=== PATIENT | female | born 1955 | race Two or more races ===

== ENCOUNTER 2021-01-08 14:17 | Outpatient (REF) | payer OTHER, SELFPAY ==
--- NOTE | ~2021-01-08 | XR_ITS ---
EXAMINATION: BILATERAL HAND AND WRIST X-RAYS CLINICAL INFORMATION: Rheumatoid arthritis COMPARISON: None TECHNIQUE: 4 views of each hand and wrist FINDINGS: There may be mild periarticular osteopenia. Bone alignment is normal. No fracture or dislocation is seen. There are small osteophytes at the IP joints of the right hand. Joint spaces are otherwise normal. No erosions or cysts are seen. Soft tissues are normal. XR/XR hand wrist RT IMPRESSION: Small osteophytes at the IP joints on the right. Question mild periarticular osteopenia.
--- NOTE | ~2021-01-08 | XR_ITS ---
EXAMINATION: biLATERAL FOOT X-RAY CLINICAL INFORMATION: Pain COMPARISON: None TECHNIQUE: 3 views of the each foot FINDINGS: Right: Bone alignment is normal. No fracture or dislocation is seen. There is severe arthritis at the first MTP joint with joint space narrowing and osteophyte formation. There are calcaneal spurs. There is soft tissue ossification or calcification of the Achilles tendon insertion. Left: There is mild hallux valgus deformity at the first MTP joint. There is mild arthritis with joint space narrowing and osteophyte formation. There are small calcaneal spurs. XR/XR foot LT min 3V IMPRESSION: Arthritis at the first MTP joint, right greater than left. Bilateral calcaneal spurs, right greater than left. Soft tissue thickening and calcification or ossification of the right Achilles tendon.
--- NOTE | ~2021-01-08 | XR_ITS ---
EXAMINATION: biLATERAL FOOT X-RAY CLINICAL INFORMATION: Pain COMPARISON: None TECHNIQUE: 3 views of the each foot FINDINGS: Right: Bone alignment is normal. No fracture or dislocation is seen. There is severe arthritis at the first MTP joint with joint space narrowing and osteophyte formation. There are calcaneal spurs. There is soft tissue ossification or calcification of the Achilles tendon insertion. Left: There is mild hallux valgus deformity at the first MTP joint. There is mild arthritis with joint space narrowing and osteophyte formation. There are small calcaneal spurs. XR/XR foot RT min 3V IMPRESSION: Arthritis at the first MTP joint, right greater than left. Bilateral calcaneal spurs, right greater than left. Soft tissue thickening and calcification or ossification of the right Achilles tendon.
--- NOTE | ~2021-01-08 | XR_ITS ---
EXAMINATION: BILATERAL HAND AND WRIST X-RAYS CLINICAL INFORMATION: Rheumatoid arthritis COMPARISON: None TECHNIQUE: 4 views of each hand and wrist FINDINGS: There may be mild periarticular osteopenia. Bone alignment is normal. No fracture or dislocation is seen. There are small osteophytes at the IP joints of the right hand. Joint spaces are otherwise normal. No erosions or cysts are seen. Soft tissues are normal. XR/XR hand wrist LT IMPRESSION: Small osteophytes at the IP joints on the right. Question mild periarticular osteopenia.
[2021-01-08 15:32] LABS: MANUAL DIFF FLAG NO
[2021-01-08 15:35] LABS: Basophils Percent Auto 0.9 % (0-2); Eosinophils Absolute Auto 0.2 X10*3/uL (0.0-0.4); Eosinophils Percent Auto 5.2 % (0-4); Hematocrit 39.8 % (37-47); Hemoglobin 13.4 g/dl (12.0-16.0); Imm Gran Abs Auto 0.01 X10*3/uL (0.00-0.03); Imm Gran Pct Auto 0.2 % (0.0-0.4); Lymphocytes Absolute Auto 1.2 X10*3/uL (1.2-4.9); Lymphocytes Percent Auto 26.7 % (20-40); Mean Corpuscular HGB Conc 33.7 g/dl (31.0-35.0); Mean Corpuscular Hemoglobin 30.1 pg (27.0-33.0); Mean Corpuscular Volume 89.4 fL (80-98); Mean Platelet Volume 10.6 fL (9.4-12.3); Monocytes Absolute Auto 0.5 X10*3/uL (0.1-1.2); Monocytes Percent Auto 10.6 % (2-11); Neutrophils Absolute Auto 2.6 X10*3/uL (2.0-8.3); Neutrophils Percent Auto 56.4 % (45-73); Platelet Count 232 X10*3/uL (160-400); Red Blood Count 4.45 X10*6/uL (4.20-5.50); Red Cell Distribution Width 12.5 % (11.0-16.0); White Blood Count 4.6 X10*3/uL (4.8-10.8)
[2021-01-08 16:20] LABS: Erythrocyte Sedimentation Rate 7 MM/HR (0-20)
[2021-01-08 16:32] LABS: Alanine Aminotransferase 28 U/L (0-31); Albumin Level 4.3 g/dL (3.5-5.0); Alkaline Phosphatase 76 U/L (39-117); Anion Gap 10 (12-20); Aspartate Amino Transferase 33 U/L (5-31); Bilirubin Total 0.4 mg/dL (0.0-1.0); Blood Urea Nitrogen 15 mg/dL (9-16); C Reactive Protein 0.39 mg/dL (< or = 0.50); Calcium 9.7 mg/dL (8.4-10.2); Carbon Dioxide 29 mmol/L (22-29); Chloride 107 mmol/L (96-108); Estimated Glomerular Filt Rate > 60; Glucose Random 81 mg/dL (60-115); Potassium 4.3 mmol/L (3.3-5.1); Rheumatoid Factor < 15.0 IU/mL (<15.0); Sodium 142 mmol/L (135-145); Total Protein 6.7 g/dL (6.5-8.0)
[2021-01-10 08:39] LABS: HBS Num1 0.61 mIU/mL (0-7.99); Hepatitis A Antibody IgM 0.23 Index (0-0.79); ~Hepatitis A Antibody IgM Nonreactive (Nonreactive); ~Hepatitis B Surface Antibody NONREACTIVE (Nonreactive)
[2021-01-10 09:03] LABS: HBc Num1 0.08 S/CO (0.00-0.79); HBsAGNum1 0.17 S/CO (0.00-0.99); Hepatitis B Core Antibody Nonreactive (Nonreactive); Hepatitis B Surface Antigen Negative (Negative); ~HepC Num1 0.08 S/CO (0.00-0.79); ~Hepatitis C Antibody Nonreactive (Nonreactive)
[2021-01-10 14:17] LABS: Cyclic Citrullinated Peptide <16 UNITS
[2021-01-11 14:31] LABS: TS Negative Control Passed; TS Panel A 1; TS Panel B 1; TS Positive Control Passed; TSpotTB Negative (SeeBelow)
== END 2021-01-08 14:18 | disposition home or self-care (01) ==
LOC: HO.XRAY 14:17
PROVIDERS: PCP Internal Medicine; Visit Provider Student in an Organized Health Care Education/Training Program
DX: M06.9 Rheumatoid arthritis, unspecified (principal); Z79.899 Other long term (current) drug therapy
CPT/HCPCS: 36415; 73110; 73130; 73630; 80053; 85025; 85652; 86140; 86200; 86431; 86481; 86704; 86706; 86709; 86803; 87340; 99202

== ENCOUNTER → 2021-05-09 12:59 | Outpatient (BNVA) | payer OTHER, SELFPAY | PROVIDERS: PCP Internal Medicine; Visit Provider Nurse Practitioner Family | DX: M06.9 Rheumatoid arthritis, unspecified (principal); M25.50 Pain in unspecified joint | CPT/HCPCS: 99212 ==

== ENCOUNTER 2021-05-30 12:37 | Outpatient (REF) | payer OTHER, SELFPAY ==
[2021-05-30 12:51] LABS: MANUAL DIFF FLAG NO
[2021-05-30 13:01] LABS: Basophils Absolute Auto 0.1 X10*3/uL (0.0-0.2); Basophils Percent Auto 0.9 % (0-2); Eosinophils Absolute Auto 0.2 X10*3/uL (0.0-0.4); Eosinophils Percent Auto 4.1 % (0-4); Hematocrit 41.7 % (37-47); Imm Gran Abs Auto 0.01 X10*3/uL (0.00-0.03); Imm Gran Pct Auto 0.2 % (0.0-0.4); Lymphocytes Absolute Auto 1.5 X10*3/uL (1.2-4.9); Lymphocytes Percent Auto 26.7 % (20-40); Mean Corpuscular HGB Conc 33.6 g/dl (31.0-35.0); Mean Corpuscular Hemoglobin 30.1 pg (27.0-33.0); Mean Corpuscular Volume 89.7 fL (80-98); Mean Platelet Volume 10.5 fL (9.4-12.3); Monocytes Absolute Auto 0.7 X10*3/uL (0.1-1.2); Monocytes Percent Auto 12.6 % (2-11); Neutrophils Absolute Auto 3.1 X10*3/uL (2.0-8.3); Neutrophils Percent Auto 55.5 % (45-73); Platelet Count 232 X10*3/uL (160-400); Red Blood Count 4.65 X10*6/uL (4.20-5.50); Red Cell Distribution Width 12.4 % (11.0-16.0); White Blood Count 5.6 X10*3/uL (4.8-10.8)
[2021-05-30 13:23] LABS: Alanine Aminotransferase 31 U/L (0-31); Albumin Level 4.5 g/dL (3.5-5.0); Alkaline Phosphatase 67 U/L (39-117); Anion Gap 12 (12-20); Aspartate Amino Transferase 34 U/L (5-31); Bilirubin Total 0.6 mg/dL (0.0-1.0); Blood Urea Nitrogen 16 mg/dL (9-16); C Reactive Protein 0.37 mg/dL (< or = 0.50); Calcium 9.8 mg/dL (8.4-10.2); Carbon Dioxide 29 mmol/L (22-29); Chloride 104 mmol/L (96-108); Estimated Glomerular Filt Rate > 60; Glucose Random 102 mg/dL (60-115); Potassium 4.6 mmol/L (3.3-5.1); Sodium 140 mmol/L (135-145)
[2021-05-30 13:51] LABS: Erythrocyte Sedimentation Rate 7 MM/HR (0-20)
== END 2021-05-30 12:38 | disposition home or self-care (01) ==
LOC: HO.LAB 12:37
PROVIDERS: PCP Internal Medicine; Visit Provider Nurse Practitioner Family
DX: M06.9 Rheumatoid arthritis, unspecified (principal)
CPT/HCPCS: 36415; 80053; 85025; 85652; 86140

== ENCOUNTER 2021-08-21 | Outpatient (REF) | payer OTHER, SELFPAY ==
[2021-08-21 15:07] LABS: MANUAL DIFF FLAG NO
[2021-08-21 15:30] LABS: Basophils Absolute Auto 0.1 X10*3/uL (0.0-0.2); Basophils Percent Auto 1.1 % (0-2); Eosinophils Absolute Auto 0.3 X10*3/uL (0.0-0.4); Eosinophils Percent Auto 5.1 % (0-4); Hematocrit 41.8 % (37.0-47.0); Hemoglobin 13.5 g/dl (12.0-16.0); Imm Gran Abs Auto 0.01 X10*3/uL (0.00-0.03); Imm Gran Pct Auto 0.2 % (0.0-0.4); Lymphocytes Absolute Auto 1.4 X10*3/uL (1.2-4.9); Lymphocytes Percent Auto 26.4 % (20-40); Mean Corpuscular HGB Conc 32.3 g/dl (31.0-35.0); Mean Corpuscular Volume 89.7 fL (80.0-98.0); Mean Platelet Volume 10.6 fL (9.4-12.3); Monocytes Absolute Auto 0.5 X10*3/uL (0.1-1.2); Monocytes Percent Auto 9.9 % (2-11); Neutrophils Percent Auto 57.3 % (45-73); Platelet Count 232 X10*3/uL (160-400); Red Blood Count 4.66 X10*6/uL (4.20-5.50); Red Cell Distribution Width 12.3 % (11.0-16.0); White Blood Count 5.3 X10*3/uL (4.8-10.8)
[2021-08-21 15:54] LABS: Alanine Aminotransferase 30 U/L (0-31); Albumin Level 4.3 g/dL (3.5-5.0); Alkaline Phosphatase 58 U/L (39-117); Anion Gap 12 (12-20); Aspartate Amino Transferase 33 U/L (5-31); Bilirubin Total 0.6 mg/dL (0.0-1.0); Blood Urea Nitrogen 14 mg/dL (9-16); C Reactive Protein 0.17 mg/dL (< or = 0.50); Calcium 9.6 mg/dL (8.4-10.2); Carbon Dioxide 27 mmol/L (22-29); Chloride 106 mmol/L (96-108); Creatinine Clr Calc Pharmacy 91.5; Estimated Glomerular Filt Rate > 60; Glucose Random 86 mg/dL (60-115); Potassium 4.3 mmol/L (3.3-5.1); Sodium 141 mmol/L (135-145)
[2021-08-21 16:39] LABS: Erythrocyte Sedimentation Rate 6 MM/HR (0-20)
== END 2021-08-21 00:01 | disposition home or self-care (01) ==
LOC: HO.LAB
PROVIDERS: Visit Provider Nurse Practitioner Family
DX: M05.9 Rheumatoid arthritis with rheumatoid factor, unspecified (principal)
CPT/HCPCS: 36415; 80053; 85025; 85652; 86140

== ENCOUNTER → 2021-08-21 14:03 | Outpatient (BNVA) | payer OTHER, SELFPAY | PROVIDERS: PCP Internal Medicine; Visit Provider Nurse Practitioner Family | DX: M06.9 Rheumatoid arthritis, unspecified (principal); M85.80 Other specified disorders of bone density and structure, unspecified site; Z79.899 Other long term (current) drug therapy | CPT/HCPCS: 36415; 80053; 85025; 99212 ==

== ENCOUNTER 2021-11-26 13:05 | Outpatient (REF) | payer OTHER, SELFPAY ==
[2021-11-26 13:59] LABS: MANUAL DIFF FLAG NO
[2021-11-26 14:15] LABS: Basophils Absolute Auto 0.1 X10*3/uL (0.0-0.2); Eosinophils Absolute Auto 0.2 X10*3/uL (0.0-0.4); Eosinophils Percent Auto 3.8 % (0-4); Hematocrit 39.7 % (37.0-47.0); Hemoglobin 13.3 g/dl (12.0-16.0); Lymphocytes Absolute Auto 1.2 X10*3/uL (1.2-4.9); Lymphocytes Percent Auto 24.6 % (20-40); Mean Corpuscular HGB Conc 33.5 g/dl (31.0-35.0); Mean Corpuscular Hemoglobin 29.6 pg (27.0-33.0); Mean Corpuscular Volume 88.2 fL (80.0-98.0); Mean Platelet Volume 10.5 fL (9.4-12.3); Monocytes Absolute Auto 0.5 X10*3/uL (0.1-1.2); Monocytes Percent Auto 10.4 % (2-11); Neutrophils Percent Auto 60.2 % (45-73); Platelet Count 200 X10*3/uL (160-400); Red Cell Distribution Width 12.7 % (11.0-16.0)
[2021-11-26 14:38] LABS: Alanine Aminotransferase 28 U/L (0-31); Albumin Level 4.2 g/dL (3.5-5.0); Alkaline Phosphatase 58 U/L (39-117); Anion Gap 12 (12-20); Aspartate Amino Transferase 29 U/L (5-31); Bilirubin Total 0.4 mg/dL (0.0-1.0); Blood Urea Nitrogen 17 mg/dL (9-16); C Reactive Protein 0.17 mg/dL (< or = 0.50); Calcium 9.9 mg/dL (8.4-10.2); Carbon Dioxide 30 mmol/L (22-29); Chloride 106 mmol/L (96-108); Estimated Glomerular Filt Rate > 60; Glucose Random 74 mg/dL (60-115); Potassium 4.5 mmol/L (3.3-5.1); Sodium 143 mmol/L (135-145); Total Protein 6.6 g/dL (6.5-8.0)
[2021-11-26 16:40] LABS: Erythrocyte Sedimentation Rate 7 MM/HR (0-20)
== END 2021-11-26 13:06 | disposition home or self-care (01) ==
LOC: HO.LAB 13:05
PROVIDERS: PCP Internal Medicine; Visit Provider Nurse Practitioner Family
DX: M06.9 Rheumatoid arthritis, unspecified (principal); M54.50 Low back pain, unspecified; Z79.899 Other long term (current) drug therapy
CPT/HCPCS: 36415; 80053; 85025; 85652; 86140; 99212

== ENCOUNTER → 2022-02-26 13:24 | Outpatient (BNVA) | payer OTHER, SELFPAY | PROVIDERS: PCP Internal Medicine; Visit Provider Nurse Practitioner Family | DX: M06.9 Rheumatoid arthritis, unspecified (principal); Z79.899 Other long term (current) drug therapy | CPT/HCPCS: Q3014 ==

== ENCOUNTER → 2022-05-27 11:58 | Outpatient (BNVA) | payer OTHER, SELFPAY | PROVIDERS: PCP Internal Medicine; Visit Provider Nurse Practitioner Family | DX: M06.9 Rheumatoid arthritis, unspecified (principal) | CPT/HCPCS: 99212 ==

== ENCOUNTER 2022-11-25 13:25 | Outpatient (REF) | payer OTHER, SELFPAY ==
[2022-11-25 14:32] LABS: MANUAL DIFF FLAG NO
[2022-11-25 15:30] LABS: Basophils Absolute Auto 0.1 X10*3/uL (0.0-0.2); Basophils Percent Auto 1.2 % (0-2); Eosinophils Absolute Auto 0.3 X10*3/uL (0.0-0.4); Eosinophils Percent Auto 4.6 % (0-4); Hematocrit 41.3 % (37.0-47.0); Hemoglobin 14.1 g/dl (12.0-16.0); Imm Gran Abs Auto 0.02 X10*3/uL (0.00-0.03); Imm Gran Pct Auto 0.3 % (0.0-0.4); Lymphocytes Absolute Auto 1.7 X10*3/uL (1.2-4.9); Mean Corpuscular HGB Conc 34.1 g/dl (31.0-35.0); Mean Corpuscular Hemoglobin 30.9 pg (27.0-33.0); Mean Corpuscular Volume 90.4 fL (80.0-98.0); Mean Platelet Volume 10.7 fL (9.4-12.3); Monocytes Absolute Auto 0.7 X10*3/uL (0.1-1.2); Monocytes Percent Auto 11.5 % (2-11); Neutrophils Absolute Auto 3.2 x10*3/uL (2.0-8.3); Neutrophils Percent Auto 53.4 % (45-73); Platelet Count 278 X10*3/uL (160-400); Red Blood Count 4.57 X10*6/uL (4.20-5.50); Red Cell Distribution Width 12.6 % (11.0-16.0); White Blood Count 5.9 X10*3/uL (4.8-10.8)
[2022-11-25 16:30] LABS: Alanine Aminotransferase 20 U/L (0-31); Aspartate Amino Transferase 25 U/L (5-31); C Reactive Protein 0.26 mg/dL (< or = 0.50); Estimated Glomerular Filt Rate > 60
[2022-11-25 16:40] LABS: Erythrocyte Sedimentation Rate 6 MM/HR (0-20)
== END 2022-11-25 13:26 | disposition home or self-care (01) ==
LOC: HO.LAB 13:25
PROVIDERS: PCP Internal Medicine; Visit Provider Nurse Practitioner Family
DX: M06.9 Rheumatoid arthritis, unspecified (principal)
CPT/HCPCS: 36415; 82565; 84450; 84460; 85025; 85652; 86140; 99212

== ENCOUNTER 2023-05-26 10:13 | Outpatient (AMB) | payer OTHER, SELFPAY ==
[2023-05-26 10:23] VITALS: BP 126/80; PULSE 84; TEMP 36.3; O2SAT 96; BMI 32.4
--- NOTE | 2023-05-26 10:23 | MHC.OFFVIS ---
Intake Vital Signs 05/26/23 10:23 Height 5 ft 7 in Weight 206 lb 12.697 oz BMI 32.4 BP 126/80 Blood Pressure Location Rt brachial Position Sitting Pulse 84 Pulse Source Pulse Oximeter Temp 97.3 F Temp Source Skin Pulse Oximetry (%) 96 Intake Visit Reasons: Rheumatoid Arthritis Intake Note: Pt presents today for follow up on RA. She was last seen 11/25/22 by [facility]. Reports using OTC mushroom supplememt and reports everything is better. Bit Sharpener Required: No Accompanied by: Self / Same As Patient Allergies trazodone Allergy (Intermediate, Verified 05/26/23 10:26) worsening depression Medication List - Last Reconciled 05/26/23 by Cheyenne Gomez MD albuterol sulfate 90 mcg/actuation 2 puffs inhalation Q4H PRN ascorbate calcium (vitamin C) 500 mg PO DAILY calcium carbonate-vitamin D3 600 mg-10 mcg (400 unit) (Calcium 600 + D(3)) 1 tab PO DAILY cholecalciferol (vitamin D3) 25 mcg PO DAILY citalopram 20 mg PO DAILY collagen (bovine) 100% ea topical diclofenac sodium 75 mg PO BID PRN echinacea 500 mg PO BID fexofenadine 180 mg PO DAILY multivitamin 1 tab PO DAILY vitamin B complex (B Complex-Vitamin B12 tablet) 1 tab PO DAILY HPI HPI Comments History of Present Illness Details This is a 67-year-old female with a history of seronegative arthritis who presents for follow-up. She is not on any DMARDs. She denies any new joint pain or swelling She bought a new house recently and she has been much more active around the house and has not been exercising and taking care of herself recently. States that she gets sharp tingling and numbness in her left lower extremity when she has been walking or standing for a while. Improves with sitting down. She also gets similar sensation in both ankles at night. That happens a few days a week and lasts a few hours. [facility] Medical History Zenobia vaginitis Rheumatoid arthritis Surgical History Hx of tonsillectomy Hx of tubal ligation Social History Household Members: None Alcohol intake: current Alcohol intake frequency: holidays/special occasions only Alcohol type: wine Patient Tobacco Use Status: Never used Tobacco e-Cigarette/Vaping Use: Never Used Review of Systems Musc Reports back pain, Reports numbness and Reports tingling Neuro Reports numbness and Reports tingling Physical Exam Vital Signs: Last Vital Signs Temp 97.3 F 05/26/23 10:23 Pulse 84 05/26/23 10:23 BP 126/80 05/26/23 10:23 Pulse Ox 96 05/26/23 10:23 BMI result Body Mass Index 32.4 Const General: cooperative, healthy appearing and comfortable Nutritional Appearance: obese Orientation/consciousness: patient oriented x3 Limitations: no limitations HEENT Head: Yes normocephalic and Yes atraumatic Mouth: moist mucous membranes Resp Effort & Inspection: normal respiratory effort and able to speak in complete sentences Auscultation: clear to auscultation bilaterally Cardio Rate: regular rate Rhythm: regular rhythm GI Inspection: No distended Palpation (GI): Soft to palpation and nontender Neuro General: patient oriented x3 Extrem Other: Osteoarthritic changes of both hands with Heberden's and Scott's nodes nontender Negative straight leg raise test bilaterally Paraspinal muscle tenderness in the lumbar area Assessment & Plan Assessment & Plan (1) Rheumatoid arthritis: Comment: Plaquenil: June 2021- January 2022 No active disease on exam since prior to January 2022 Code(s): M06.9 - Rheumatoid arthritis, unspecified Qualifiers: Rheumatoid arthritis location: multiple sites Rheumatoid factor presence: without rheumatoid factor Qualified Code(s): M06.09 - Rheumatoid arthritis without rheumatoid factor, multiple sites Plan: Patient with a history of rheumatoid arthritis diagnosed approximately 15 years ago.? She was treated with methotrexate for approximately 3 years and then her disease went into remission and the medication was discontinued by her facilities maintenance worker.? She had mild periarticular osteopenia on xrays of her hands in December 2020 and was started on plaquenil 200mg daily in early June 2021. She reported full resolution of her joint pain initially after starting plaquenil, then found that her symptoms were unchanged. Plaquenil stopped January 2022. Patient has a negative CCP, negative RF, and normal inflammatory markers. No synovitis on exam. I informed patient that I do not see any signs of active RA. Follow-up as needed (2) Tingling of both feet: Code(s): R20.2 - Paresthesia of skin Plan: Follow-up with PCP Plan I spent 20 minutes reviewing patient's chart, evaluating patient, counseling patient and documenting in the chart Coding Level of Care Code Est Pt Level 3 (71696) Diagnoses Rheumatoid arthritis of multiple sites with negative rheumatoid factor M06.09 Rheumatoid arthritis location: multiple sites Rheumatoid factor presence: without rheumatoid factor Tingling of both feet R20.2
== END 2023-05-26 10:53 | disposition home or self-care (01) ==
LOC: HO.RHE 10:13
PROVIDERS: PCP Internal Medicine; Visit Provider Student in an Organized Health Care Education/Training Program
DX: M06.09 Rheumatoid arthritis without rheumatoid factor, multiple sites (principal); R20.2 Paresthesia of skin
CPT/HCPCS: 99213

== ENCOUNTER → 2023-05-26 10:13 | Outpatient (BNVA) | payer OTHER, SELFPAY | PROVIDERS: PCP Internal Medicine; Visit Provider Student in an Organized Health Care Education/Training Program | DX: M06.09 Rheumatoid arthritis without rheumatoid factor, multiple sites (principal); R20.2 Paresthesia of skin | CPT/HCPCS: 99212 ==

== ENCOUNTER 2024-01-18 10:55 | Outpatient (AMB) | payer OTHER, SELFPAY ==
[2024-01-18 10:59] VITALS: BP 118/66; PULSE 90; O2SAT 96; BMI 32.5
--- NOTE | 2024-01-18 10:59 | A.OFFVIS_ITS ---
Vital Signs 01/18/24 10:59 Height 5 ft 7 in Weight 207 lb 6 oz BMI 32.5 BP 118/66 Blood Pressure Location Lt brachial Position Sitting Pulse 90 Pulse Source Pulse Oximeter Pulse Oximetry (%) 96 Oxygen Delivery Method Room Air Intake Visit Reasons: Asthma Allergies trazodone Allergy (Intermediate, Verified 01/18/24 11:02) worsening depression HPI HPI Asthma : Details: Katie is pleasant 68 year female, never smoker, with underlying asthma and rheumatoid arthritis. She was referred by PCP for pulmonary evaluation. She reports recent prescription from PCP of antibiotics and prednisone for asthma exacerbation with bronchitic symptoms, completed last week with significant improvement. She continues with intermittent cough and dyspnea with moderate exertion at baseline. She was also prescribed Wixela 250 mcg and albuterol which she uses infrequently. She reports having 5 cats for years and 15 chickens x 2 years. 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 She denies any prior chest CT to evaluate for ILD. She reports PFT performed within the last two years at [facility], report not available. [facility] Medical History Zenobia vaginitis Rheumatoid arthritis Surgical History Hx of tonsillectomy Hx of tubal ligation Social History Household Members: None Alcohol intake: current Alcohol intake frequency: holidays/special occasions only Alcohol type: wine Patient Tobacco Use Status: Never used Tobacco e-Cigarette/Vaping Use: Never Used Review of Systems Const Denies chills, Denies excessive sweating, Denies fever(s), Denies headache(s) and Denies night sweats Eyes Denies dry eyes, Denies irritation and Denies itchy eyes ENT Reports Normal hearing present, Denies headache(s), Denies nasal congestion, Denies nasal discharge, Denies post nasal drip and Denies sore throat Card Denies chest pain, Denies chest pain at rest, Denies chest pain with activity, Denies claudication, Denies leg edema, Reports dyspnea on exertion, Denies orthopnea and Denies paroxysmal nocturnal dyspnea Resp Denies chest congestion, Reports cough, Denies excessive phlegm production, Denies pain on inspiration, Denies pain with cough, Reports dyspnea on exertion, Denies stridor and Denies wheezing Musc Denies myalgias Neuro Reports Normal hearing present and Denies headache(s) Endo Denies excessive sweating Srinivasa/Lymph Denies lymphadenopathy Aller/Immun Denies itchy eyes, Denies seasonal rhinorrhea and Denies wheezing Physical Exam Vital Signs: Last Vital Signs Pulse 90 01/18/24 10:59 BP 118/66 01/18/24 10:59 Pulse Ox 96 01/18/24 10:59 Oxygen Delivery Method Room Air 01/18/24 10:59 BMI result Body Mass Index 32.5 Const General: cooperative, healthy appearing, comfortable, no acute distress, well developed and alert Nutritional Appearance: obese Orientation/consciousness: patient oriented x3 Limitations: no limitations HEENT Head: Yes normal to inspection, Yes normocephalic and Yes atraumatic Ears: hearing grossly normal bilaterally and external ears normal Eyes General: appearance normal, both eyes and all related structures Eyelids: Yes eyelids normal Sclerae: sclerae normal EOM: EOMs intact bilaterally Neck Neck: Yes normal visual inspection and Yes no lymphadenopathy Lymphatic: no lymphadenopathy noted Chest Chest palpation & inspection: normal inspection of the chest Resp Effort & Inspection: normal respiratory effort, able to speak in complete sentences, no audible wheezes, no cough, no stridor, not tachypneic, no tripod positioning and no use of accessory muscles Auscultation: diminished lung sounds Cardio Jugular venous distension: no JVD Rate: regular rate Rhythm: regular rhythm Skin Other: warm, dry General skin exam: no rashes or lesions noted Neuro General: patient oriented x3 Cranial nerves: Yes Normal hearing present Cognition (Neuro): normal cognition Gait exam (Neuro): Normal gait present Extrem General: Yes normal to inspection, Yes capillary refill normal, Yes no clubbing, cyanosis or edema and Yes no pedal edema Psych Appearance: grossly normal and well kempt Speech and movement: Normal speech and movement present and Clear speech present Affect: normal affect Attitude: cooperative Thought process: Normal thought process present Thought content: Normal thought content present Insight: Good insight present (Psych) Judgement: Good judgement present (Psych) Assessment & Plan Assessment & Plan (1) Asthma: Code(s): J45.909 - Unspecified asthma, uncomplicated Category: Medical (2) Environmental allergies: Code(s): Z91.09 - Other allergy status, other than to drugs and biological substances Category: Medical (3) Seronegative rheumatoid arthritis: Comment: Plaquenil: June 2021- January 2022 Code(s): M06.00 - Rheumatoid arthritis without rheumatoid factor, unspecified site Category: Medical (4) Occupational exposure to chemicals: Code(s): Z77.098 - Contact with and (suspected) exposure to other hazardous, chiefly nonmedicinal, chemicals Category: Medical (5) Cough: Code(s): R05.9 - Cough, unspecified Category: Medical Plan Katie presents for evaluation of asthma. She reports more frequent exacerbations over the last year, with possible allergic contribution. Patient also noted having 15 chickens for the last two years. Will send for RAST, including IgE for chicken. Will attempt to obtain prior PFT. Patient also with multiple occupational exposures and h/o RA previously on Plaquenil, and worsening respiratory symptoms with unremarkable CXR, will send for chest CT to assess for ILD. All questions were answered and patient is in agreement of plan. Will follow up to review results or sooner if needed. Orders: Orders Complete Blood Count Auto Diff Today Z91.09 - Other allergy status, other than to drugs and biological substances Immunoglobulin E Today Z91.09 - Other allergy status, other than to drugs and biological substances Other Ref Test - Misc Today Z91.09 - Other allergy status, other than to drugs and biological substances Resp Allergy Profile Region I Today Z91.09 - Other allergy status, other than to drugs and biological substances CT chest wo IV con Today M06.00 - Rheumatoid arthritis without rheumatoid factor, unspecified site, R05.9 - Cough, unspecified, Z77.098 - Contact with and (suspected) exposure to other hazardous, chiefly nonmedicinal, chemicals Coding Level of Care Code New Pt Level 4 (14373) Diagnoses Asthma J45.909 Environmental allergies Z91.09 Seronegative rheumatoid arthritis M06.00 Occupational exposure to chemicals Z77.098 Cough R05.9
== END 2024-01-18 11:47 | disposition home or self-care (01) ==
PROVIDERS: PCP Internal Medicine; Referring Provider Internal Medicine; Visit Provider Nurse Practitioner Family
DX: J45.909 Unspecified asthma, uncomplicated (principal); Z91.09 Other allergy status, other than to drugs and biological substances; M06.00 Rheumatoid arthritis without rheumatoid factor, unspecified site; Z77.098 Contact with and (suspected) exposure to other hazardous, chiefly nonmedicinal, chemicals; R05.9 Cough, unspecified
CPT/HCPCS: 99204

== ENCOUNTER → 2024-01-18 10:55 | Outpatient (BNVA) | payer OTHER, SELFPAY | PROVIDERS: PCP Internal Medicine; Referring Provider Internal Medicine; Visit Provider Nurse Practitioner Family | DX: J45.909 Unspecified asthma, uncomplicated (principal); R05.9 Cough, unspecified; M06.00 Rheumatoid arthritis without rheumatoid factor, unspecified site; Z91.09 Other allergy status, other than to drugs and biological substances; Z79.899 Other long term (current) drug therapy; Z77.098 Contact with and (suspected) exposure to other hazardous, chiefly nonmedicinal, chemicals | CPT/HCPCS: 99202 ==

== ENCOUNTER 2024-01-18 12:11 | Outpatient (REF) | payer OTHER, SELFPAY ==
[2024-01-18 14:27] LABS: MANUAL DIFF FLAG NO
[2024-01-18 14:40] LABS: Basophils Absolute Auto 0.1 X10*3/uL (0.0-0.2); Basophils Percent Auto 1.2 % (0-2); Eosinophils Absolute Auto 0.2 X10*3/uL (0.0-0.4); Eosinophils Percent Auto 4.5 % (0-4); Hematocrit 43.8 % (37.0-47.0); Hemoglobin 14.3 g/dl (12.0-16.0); Imm Gran Abs Auto 0.02 X10*3/uL (0.00-0.03); Imm Gran Pct Auto 0.4 % (0.0-0.4); Lymphocytes Absolute Auto 1.1 X10*3/uL (1.2-4.9); Lymphocytes Percent Auto 21.5 % (20-40); Mean Corpuscular HGB Conc 32.6 g/dl (31.0-35.0); Mean Corpuscular Hemoglobin 29.6 pg (27.0-33.0); Mean Corpuscular Volume 90.7 fL (80.0-98.0); Mean Platelet Volume 11.1 fL (9.4-12.3); Monocytes Absolute Auto 0.5 X10*3/uL (0.1-1.2); Monocytes Percent Auto 9.8 % (2-11); Neutrophils Absolute Auto 3.1 x10*3/uL (2.0-8.3); Neutrophils Percent Auto 62.6 % (45-73); Platelet Count 214 X10*3/uL (160-400); Red Blood Count 4.83 X10*6/uL (4.20-5.50); Red Cell Distribution Width 13.1 % (11.0-16.0); White Blood Count 4.9 X10*3/uL (4.8-10.8)
[2024-01-19 20:53] LABS: Class Alternaria alternata 0; Class Aspergillus fumigatus 0; Class Bermuda Grass 0; Class Birch 0; Class Cat Dander 0; Class Cladosporium herbarum 0; Class Cockroach 0; Class Common Ragweed 0; Class Cottonwood 0; Class Derm. pterony 0; Class Dermatophagoides farinae 0; Class Dog Dander 0; Class Elm 0; Class Maple Box Elder 0; Class Mountain Cedar 0; Class Mouse Urine Protein 0; Class Mugwort 0; Class Oak 0; Class Penicillium crysogenum 0; Class Rough Pigweed 0; Class Sheep Sorrel 0; Class Sycamore 0; Class Timothy Grass 0; Class Walnut Tree 0; Class White Ash 0; Class White Mulberry 0; D001 IgE D pteronyssinus <0.10 kU/L; D002 - IgE D farinae <0.10 kU/L; E001 - IgE Cat Dander <0.10 kU/L; E005 - IgE Dog Dander <0.10 kU/L; E072-IgE Mouse Urine <0.10 kU/L; G002 IgE Bermuda Grass <0.10 kU/L; G006 - IgE Timothy Grass <0.10 kU/L; I006-IgE Cockroach, German <0.10 kU/L; Immunoglobulin E <2 kU/L (<OR=114); M001 IgE Penicillium chrysogen <0.10 kU/L; M002 - IgE Cladosporium herbar <0.10 kU/L; M003 - IgE Aspergillus fumigat <0.10 kU/L; M006 - IgE Alternaria alternat <0.10 kU/L; T001 IgE Maple/Box Elder <0.10 kU/L; T003 IgE Common Silver Birch <0.10 kU/L; T006 - IgE Cedar, Mountain <0.10 kU/L; T007 - IgE Oak, White <0.10 kU/L; T008 IgE Elm, American <0.10 kU/L; T010 - IgE Walnut <0.10 kU/L; T011 - IgE Maple Leaf Sycamore <0.10 kU/L; T014 - IgE Cottonwood <0.10 kU/L; T015 - IgE Ash, White <0.10 kU/L; T070 - IgE White Mulberry <0.10 kU/L; W001 - IgE Ragweed, Short <0.10 kU/L; W006 - IgE Mugwort <0.10 kU/L; W014 IgE Pigweed, Common <0.10 kU/L; W018 IgE Sheep Sorrel <0.10 kU/L
== END 2024-01-18 12:12 | disposition home or self-care (01) ==
LOC: HO.WFDLDS 12:11
PROVIDERS: Visit Provider Nurse Practitioner Family
DX: Z91.09 Other allergy status, other than to drugs and biological substances (principal)
CPT/HCPCS: 36415; 82785; 85025; 86003

== ENCOUNTER 2024-04-12 14:55 | Outpatient (AMB) | payer OTHER, SELFPAY ==
[2024-04-12 14:57] VITALS: BP 118/62; PULSE 87; O2SAT 97; BMI 32.6
--- NOTE | 2024-04-12 14:57 | A.OFFVIS_ITS ---
Vital Signs 04/12/24 14:57 Height 5 ft 7 in Weight 208 lb 6 oz BMI 32.6 BP 118/62 Blood Pressure Location Rt brachial Position Sitting Pulse 87 Pulse Source Pulse Oximeter Pulse Oximetry (%) 97 Oxygen Delivery Method Room Air Intake Visit Reasons: Asthma Allergies trazodone Allergy (Intermediate, Verified 04/12/24 15:00) worsening depression HPI HPI Asthma: Details: Katie is pleasant 68 year female, never smoker, with underlying asthma and rheumatoid arthritis. She initially reported worsening asthma symptoms however completing antibiotics and prednisone she had great improvement. She report minimal respiratory symptoms. Today she presents to review CT chest and RAST. She denies any visits to urgent care or hospitalizations since the last visit. [facility] Medical History Zenobia vaginitis Rheumatoid arthritis Surgical History Hx of tonsillectomy Hx of tubal ligation Social History Household Members: None Alcohol intake: current Alcohol intake frequency: holidays/special occasions only Alcohol type: wine Patient Tobacco Use Status: Never used Tobacco e-Cigarette/Vaping Use: Never Used Review of Systems Const Denies chills, Denies excessive sweating, Denies fever(s), Denies headache(s) and Denies night sweats Eyes Denies dry eyes, Denies irritation and Denies itchy eyes ENT Reports Normal hearing present, Denies headache(s), Denies nasal congestion, Denies nasal discharge, Denies post nasal drip and Denies sore throat Card Denies chest pain, Denies chest pain at rest, Denies chest pain with activity, Denies claudication, Denies leg edema, Denies orthopnea and Denies paroxysmal nocturnal dyspnea Resp Denies chest congestion, Reports cough, Denies excessive phlegm production, Denies pain on inspiration, Denies pain with cough, Denies stridor and Denies wheezing Musc Denies myalgias Neuro Reports Normal hearing present and Denies headache(s) Endo Denies excessive sweating Srinivasa/Lymph Denies lymphadenopathy Aller/Immun Denies itchy eyes, Denies seasonal rhinorrhea and Denies wheezing Physical Exam Vital Signs: Last Vital Signs Pulse 87 04/12/24 14:57 BP 118/62 04/12/24 14:57 Pulse Ox 97 04/12/24 14:57 Oxygen Delivery Method Room Air 04/12/24 14:57 BMI result Body Mass Index 32.6 Const General: cooperative, healthy appearing, comfortable, no acute distress, well developed and alert Nutritional Appearance: obese Orientation/consciousness: patient oriented x3 Limitations: no limitations HEENT Head: Yes normal to inspection, Yes normocephalic and Yes atraumatic Ears: hearing grossly normal bilaterally and external ears normal Eyes General: appearance normal, both eyes and all related structures Eyelids: Yes eyelids normal Sclerae: sclerae normal EOM: EOMs intact bilaterally Neck Neck: Yes normal visual inspection and Yes no lymphadenopathy Lymphatic: no lymphadenopathy noted Chest Chest palpation & inspection: normal inspection of the chest Resp Effort & Inspection: normal respiratory effort, able to speak in complete sentences, no audible wheezes, no cough, no stridor, not tachypneic, no tripod positioning and no use of accessory muscles Auscultation: diminished lung sounds Cardio Jugular venous distension: no JVD Rate: regular rate Rhythm: regular rhythm Skin Other: warm, dry General skin exam: no rashes or lesions noted Neuro General: patient oriented x3 Cranial nerves: Yes Normal hearing present Cognition (Neuro): normal cognition Gait exam (Neuro): Normal gait present Extrem General: Yes normal to inspection, Yes capillary refill normal, Yes no clubbing, cyanosis or edema and Yes no pedal edema Psych Appearance: grossly normal and well kempt Speech and movement: Normal speech and movement present and Clear speech present Affect: normal affect Attitude: cooperative Thought process: Normal thought process present Thought content: Normal thought content present Insight: Good insight present (Psych) Judgement: Good judgement present (Psych) Assessment & Plan Assessment & Plan (1) Asthma: Code(s): J45.909 - Unspecified asthma, uncomplicated Category: Medical (2) Seronegative rheumatoid arthritis: Comment: Plaquenil: June 2021- January 2022 Code(s): M06.00 - Rheumatoid arthritis without rheumatoid factor, unspecified site Category: Medical (3) Cough: Code(s): R05.9 - Cough, unspecified Category: Medical Plan Reviewed RAST which was negative. CT report noted GAYATRI 4 mm nodule and several calcified granulomas. Will send for repeat chest CT to assess stability. All questions were answered and patient is in agreement of plan. Will follow up in three months or sooner if needed. Orders: Orders CT chest wo IV con 8 Months R91.1 - Solitary pulmonary nodule Medications: New fluticasone propion-salmeterol 100-50 mcg/dose (Wixela Inhub) 1 inh inhalation BID 60 ea 3RF Coding Level of Care Code Est Pt Level 3 (44470) Diagnoses Asthma J45.909 Seronegative rheumatoid arthritis M06.00 Cough R05.9
== END 2024-04-12 15:33 | disposition home or self-care (01) ==
PROVIDERS: PCP Internal Medicine; Visit Provider Nurse Practitioner Family
DX: J45.909 Unspecified asthma, uncomplicated (principal); M06.00 Rheumatoid arthritis without rheumatoid factor, unspecified site; R05.9 Cough, unspecified
CPT/HCPCS: 99213

== ENCOUNTER → 2024-04-12 14:55 | Outpatient (BNVA) | payer OTHER, SELFPAY | PROVIDERS: PCP Internal Medicine; Visit Provider Nurse Practitioner Family | DX: J45.909 Unspecified asthma, uncomplicated (principal); M06.00 Rheumatoid arthritis without rheumatoid factor, unspecified site; R91.1 Solitary pulmonary nodule | CPT/HCPCS: 99212 ==

== ENCOUNTER 2024-07-12 15:06 | Outpatient (AMB) | payer OTHER, SELFPAY ==
[2024-07-12 15:22] VITALS: BP 124/60; PULSE 87; O2SAT 97; BMI 32.4
--- NOTE | 2024-07-12 15:22 | MHC.OFFVIS ---
Vital Signs 07/12/24 15:22 Height 5 ft 7 in Weight 207 lb 2 oz BMI 32.4 BP 124/60 Blood Pressure Location Lt brachial Position Sitting Pulse 87 Pulse Source Pulse Oximeter Pulse Oximetry (%) 97 Oxygen Delivery Method Room Air Intake Visit Reasons: Asthma Allergies trazodone Allergy (Intermediate, Verified 07/12/24 15:31) worsening depression HPI HPI Asthma: Details: Katie is pleasant 69year female, never smoker, with underlying asthma and rheumatoid arthritis. Since last visit patient reports respiratory symptoms have been well controlled using albuterol p.r.n.. She has not been using Wixela as she develops cough with use, likely related to the dry powder. RA symptoms have been controlled. She denies any visits to urgent care or hospitalizations since the last visit. [facility] Medical History Zenobia vaginitis Rheumatoid arthritis Surgical History Hx of tonsillectomy Hx of tubal ligation Social History Household Members: None Alcohol intake: current Alcohol intake frequency: holidays/special occasions only Alcohol type: wine Patient Tobacco Use Status: Never used Tobacco e-Cigarette/Vaping Use: Never Used Review of Systems Const Denies chills, Denies excessive sweating, Denies fever(s), Denies headache(s) and Denies night sweats Eyes Denies dry eyes, Denies irritation and Denies itchy eyes ENT Reports Normal hearing present, Denies headache(s), Denies nasal congestion, Denies nasal discharge, Denies post nasal drip and Denies sore throat Card Denies chest pain, Denies chest pain at rest, Denies chest pain with activity, Denies claudication, Denies leg edema, Denies dyspnea, Denies dyspnea on exertion, Denies orthopnea and Denies paroxysmal nocturnal dyspnea Resp Denies chest congestion, Denies cough, Denies excessive phlegm production, Denies pain on inspiration, Denies pain with cough, Denies dyspnea, Denies dyspnea on exertion, Denies stridor and Denies wheezing Musc Denies myalgias Neuro Reports Normal hearing present and Denies headache(s) Endo Denies excessive sweating Srinivasa/Lymph Denies lymphadenopathy Aller/Immun Denies itchy eyes, Denies seasonal rhinorrhea and Denies wheezing Physical Exam Vital Signs: Last Vital Signs Pulse 87 07/12/24 15:22 BP 124/60 07/12/24 15:22 Pulse Ox 97 07/12/24 15:22 Oxygen Delivery Method Room Air 07/12/24 15:22 BMI result Body Mass Index 32.4 Const General: cooperative, healthy appearing, comfortable, no acute distress, well developed and alert Nutritional Appearance: obese Orientation/consciousness: patient oriented x3 Limitations: no limitations HEENT Head: Yes normal to inspection, Yes normocephalic and Yes atraumatic Ears: hearing grossly normal bilaterally and external ears normal Eyes General: appearance normal, both eyes and all related structures Eyelids: Yes eyelids normal Sclerae: sclerae normal EOM: EOMs intact bilaterally Neck Neck: Yes normal visual inspection and Yes no lymphadenopathy Lymphatic: no lymphadenopathy noted Chest Chest palpation & inspection: normal inspection of the chest Resp Effort & Inspection: normal respiratory effort, able to speak in complete sentences, no audible wheezes, no cough, no stridor, not tachypneic, no tripod positioning and no use of accessory muscles Auscultation: clear to auscultation bilaterally Cardio Jugular venous distension: no JVD Rate: regular rate Rhythm: regular rhythm Skin Other: warm, dry General skin exam: no rashes or lesions noted Neuro General: patient oriented x3 Cranial nerves: Yes Normal hearing present Cognition (Neuro): normal cognition Gait exam (Neuro): Normal gait present Extrem General: Yes normal to inspection, Yes capillary refill normal, Yes no clubbing, cyanosis or edema and Yes no pedal edema Psych Appearance: grossly normal and well kempt Speech and movement: Normal speech and movement present and Clear speech present Affect: normal affect Attitude: cooperative Thought process: Normal thought process present Thought content: Normal thought content present Insight: Good insight present (Psych) Judgement: Good judgement present (Psych) Assessment & Plan Assessment & Plan (1) Asthma: Code(s): J45.909 - Unspecified asthma, uncomplicated Category: Medical (2) Seronegative rheumatoid arthritis: Comment: Plaquenil: June 2021- January 2022 Code(s): M06.00 - Rheumatoid arthritis without rheumatoid factor, unspecified site Category: Medical (3) Cough: Code(s): R05.9 - Cough, unspecified Category: Medical (4) Pulmonary nodule: Code(s): R91.1 - Solitary pulmonary nodule Category: Medical Plan CT chest 03/2024 report noted GAYATRI 4 mm nodule and several calcified granulomas. Will send for repeat chest CT in 1 year to assess stability, if continues to be stable no need for further imaging. Order placed at last visit. At this time she reports respiratory symptoms are controlled using albuterol MDI advised to continue and she is aware to call if symptoms become less controlled. Will consider soft mist inhaler in place of Wixela. All questions were answered and patient is in agreement of plan. Will follow up to review results of chest CT or sooner if needed. Coding Level of Care Code Est Pt Level 3 (90413) Diagnoses Asthma J45.909 Seronegative rheumatoid arthritis M06.00 Cough R05.9 Pulmonary nodule R91.1
== END 2024-07-12 16:06 | disposition home or self-care (01) ==
PROVIDERS: PCP Internal Medicine; Visit Provider Nurse Practitioner Family
DX: J45.909 Unspecified asthma, uncomplicated (principal); M06.00 Rheumatoid arthritis without rheumatoid factor, unspecified site; R05.9 Cough, unspecified; R91.1 Solitary pulmonary nodule
CPT/HCPCS: 99213

== ENCOUNTER → 2024-07-12 15:06 | Outpatient (BNVA) | payer OTHER, SELFPAY | PROVIDERS: PCP Internal Medicine; Visit Provider Nurse Practitioner Family | DX: J45.909 Unspecified asthma, uncomplicated (principal); M06.00 Rheumatoid arthritis without rheumatoid factor, unspecified site; R05.9 Cough, unspecified; R91.1 Solitary pulmonary nodule | CPT/HCPCS: 99212 ==

== ENCOUNTER 2024-11-17 14:15 | Outpatient (AMB) | payer MEDICARE, MEDICAID, SELFPAY ==
--- NOTE | 2024-11-17 12:26 | MHC.OFFVIS ---
Vital Signs 11/17/24 14:18 Height 5 ft 7 in Weight 213 lb BMI 33.4 BP 136/72 Blood Pressure Location Rt brachial Position Sitting Pulse 78 Pulse Source Pulse Oximeter Pulse Oximetry (%) 96 Oxygen Delivery Method Room Air Intake Visit Reasons: Asthma Medical Office Receptionist Required: No Form Setter Supervisor: Form Setter Supervisor offered & declined Accompanied by: Self / Same As Patient Allergies trazodone Allergy (Intermediate, Verified 11/17/24 14:23) worsening depression Medication List - Last Reconciled 11/17/24 by Isabelle Lugo, BERONICA albuterol sulfate 90 mcg/actuation 2 puffs inhalation Q4H PRN amlodipine 2.5 mg PO DAILY ascorbate calcium (vitamin C) 500 mg PO DAILY calcium carbonate-vitamin D3 600 mg-10 mcg (400 unit) (Calcium 600 + D(3)) 1 tab PO DAILY citalopram 20 mg PO DAILY clonazepam mg PO collagen (bovine) 100% ea topical diclofenac sodium 75 mg PO BID PRN echinacea 500 mg PO BID fexofenadine 180 mg PO DAILY fluticasone propion-salmeterol 100-50 mcg/dose (Wixela Inhub) 1 inh inhalation BID mecobalamin (vitamin B12) (B12 Active) 1,000 mcg PO DAILY multivitamin 1 tab PO DAILY vitamin B complex (B Complex-Vitamin B12 tablet) 1 tab PO DAILY HPI HPI Asthma: Details: Katie is pleasant 69 year female, never smoker, with underlying asthma and rheumatoid arthritis. She reports moderate control of respiratory symptoms using Wixela one inhalation QD. She continues to report dyspnea on exertion, however does not use Wixela BID nor does she use albuterol MDI. She also notes ongoing joint pain for the last few months, encouraged her to return to [facility] [place]. She denies any visits to urgent care or hospitalizations since the last visit. Today she presents to review Chest CT from 10/24 performed at [facility] to assess stability of prior noted nodules CT chest 03/2024 report noted GAYATRI 4 mm nodule and several calcified granulomas. [facility] Medical History Zenobia vaginitis Rheumatoid arthritis Surgical History Hx of tonsillectomy Hx of tubal ligation Social History Household Members: None Alcohol intake: current Alcohol intake frequency: holidays/special occasions only Alcohol type: wine Patient Tobacco Use Status: Never used Tobacco e-Cigarette/Vaping Use: Never Used Review of Systems Const Denies chills, Denies excessive sweating, Denies fever(s), Denies headache(s) and Denies night sweats Eyes Denies dry eyes, Denies irritation and Denies itchy eyes ENT Reports Normal hearing present, Denies headache(s), Denies nasal congestion, Denies nasal discharge, Denies post nasal drip and Denies sore throat Card Denies chest pain, Denies chest pain at rest, Denies chest pain with activity, Denies claudication, Denies leg edema, Denies orthopnea and Denies paroxysmal nocturnal dyspnea Resp Denies chest congestion, Denies excessive phlegm production, Denies pain on inspiration, Denies pain with cough, Denies stridor and Denies wheezing Musc Denies myalgias Neuro Reports Normal hearing present and Denies headache(s) Endo Denies excessive sweating Srinivasa/Lymph Denies lymphadenopathy Aller/Immun Denies itchy eyes, Denies seasonal rhinorrhea and Denies wheezing Physical Exam Vital Signs: Last Vital Signs Pulse 78 11/17/24 14:18 BP 136/72 11/17/24 14:18 Pulse Ox 96 11/17/24 14:18 Oxygen Delivery Method Room Air 11/17/24 14:18 BMI result Body Mass Index 33.4 Const General: cooperative, healthy appearing, comfortable, no acute distress, well developed and alert Nutritional Appearance: obese Orientation/consciousness: patient oriented x3 Limitations: no limitations HEENT Head: Yes normal to inspection, Yes normocephalic and Yes atraumatic Ears: hearing grossly normal bilaterally and external ears normal Eyes General: appearance normal, both eyes and all related structures Eyelids: Yes eyelids normal Sclerae: sclerae normal EOM: EOMs intact bilaterally Neck Neck: Yes normal visual inspection and Yes no lymphadenopathy Lymphatic: no lymphadenopathy noted Chest Chest palpation & inspection: normal inspection of the chest Resp Effort & Inspection: normal respiratory effort, able to speak in complete sentences, no audible wheezes, no cough, no stridor, not tachypneic, no tripod positioning and no use of accessory muscles Auscultation: clear to auscultation bilaterally Cardio Jugular venous distension: no JVD Rate: regular rate Rhythm: regular rhythm Skin Other: warm, dry General skin exam: no rashes or lesions noted Neuro General: patient oriented x3 Cranial nerves: Yes Normal hearing present Cognition (Neuro): normal cognition Gait exam (Neuro): Normal gait present Extrem General: Yes normal to inspection, Yes capillary refill normal, Yes no clubbing, cyanosis or edema and Yes no pedal edema Psych Appearance: grossly normal and well kempt Speech and movement: Normal speech and movement present and Clear speech present Affect: normal affect Attitude: cooperative Thought process: Normal thought process present Thought content: Normal thought content present Insight: Good insight present (Psych) Judgement: Good judgement present (Psych) Results Reviewed Results Reviewed: RESULT: CT Chest W/O Contrast CT Chest W/O Contrast INDICATION: Reason: R91.1 Lung nodule follow-up TECHNIQUE: Helical CT scan of the chest without IV contrast, formatted in 3 planes. Weight-based protocol was performed using automatic exposure control. CTDIvol Body: 11.52 mGy, DLP Body: 467 mGy*cm. COMPARISON: 03/16/2024 FINDINGS: Apartment Maintenance Worker view findings, lines and tubes: None. Trachea and airways: Patent without evidence of tracheal or endobronchial lesion. Lungs and pleura: New peripheral left upper lobe 7 x 5 mm nodular opacity noted on series 5 image 52. Stable 4 mm left upper lobe subpleural nodule noted on series 605 image 10. Stable 3 mm perivascular nodule left upper lobe density 605 image 23. Stable multiple scattered bilateral calcified granulomas, largest measuring up to 8 mm at the right lung base. Chronic atelectasis medial right lung base adjacent to spinal osteophytes. No effusion or pneumothorax. Mediastinum and gwendolyn: Calcified right hilar and subcarinal lymph nodes. No mass or hematoma. No mediastinal or hilar lymphadenopathy. No esophageal abnormality. Heart: Heart is normal in size. No pericardial effusion. Mild coronary artery calcification. Aorta: Mild vascular calcification but no aneurysm. Pulmonary arteries: Normal caliber. Chest wall soft tissues: No acute abnormality. Diaphragm: Intact. Upper abdomen: Small type I hiatal hernia. Calcified splenic granulomas. Bones: No acute abnormality. Thoracic spine anterior spurring and disc space narrowing. IMPRESSION: New 7 x 5 mm left upper lobe pulmonary nodular density. Consider 3-[address] follow-up. Stable granulomatous disease. Small hiatal hernia. WSN: [id number] Ordering Physician: Barbara Packer Reason For Exam R91.1 LUNG NODULE Signature Line Dictated By: Jack Vernon MD Dictated Date/Time: 10/31/24 10:06 a Reviewed By: Jack Vernon MD Signed By: Jack Vernon MD Signed Date/Time: 10/31/24 10:06 am Transcribed By: CSRosina Transcribed Date/Time: 10/31/24 9:51 am Assessment & Plan Assessment & Plan (1) Asthma: Code(s): J45.909 - Unspecified asthma, uncomplicated Category: Medical (2) Seronegative rheumatoid arthritis: Comment: Plaquenil: June 2021- January 2022 Code(s): M06.00 - Rheumatoid arthritis without rheumatoid factor, unspecified site Category: Medical (3) Cough: Code(s): R05.9 - Cough, unspecified Category: Medical (4) Pulmonary nodule: Code(s): R91.1 - Solitary pulmonary nodule Category: Medical Plan Katie reports suboptimal effect of respiratory symptoms using Wixela 1 inhalation QD. Advised to increase to BID. She is aware to call if respiratory symptoms still not controlled with increasing dose. Reviewed chest CT which revealed new peripheral left upper lobe 7 x 5 mm nodular opacity, stable 4 mm left upper lobe subpleural nodule, stable 3 mm perivascular nodule left upper lobe density and stable multiple scattered bilateral calcified granulomas, largest measuring up to 8 mm at the right lung base. Will repeat in 3 months to assess stability, she is requesting this to be scheduled through [facility]. She did note increasing joint pain, previously under the care of rheumatology, encouraged her to schedule follow up. All questions were answered and patient is in agreement of plan. Will follow up to review results of chest CT or sooner if needed. Orders: Orders CT chest wo IV con 2 Months R91.1 - Solitary pulmonary nodule Medications: Refilled fluticasone propion-salmeterol 100-50 mcg/dose (Wixela Inhub) 1 inh inhalation BID 60 ea 3RF Coding Level of Care Code Est Pt Level 4 (11227) Diagnoses Asthma J45.909 Seronegative rheumatoid arthritis M06.00 Cough R05.9 Pulmonary nodule R91.1
[2024-11-17 14:18] VITALS: BP 136/72; PULSE 78; O2SAT 96; BMI 33.4
== END 2024-11-17 14:48 | disposition home or self-care (01) ==
LOC: HO.HPSW 14:15
PROVIDERS: PCP Internal Medicine; Visit Provider Nurse Practitioner Family
DX: J45.909 Unspecified asthma, uncomplicated (principal); M06.00 Rheumatoid arthritis without rheumatoid factor, unspecified site; R05.9 Cough, unspecified; R91.1 Solitary pulmonary nodule
CPT/HCPCS: 99214

== ENCOUNTER → 2024-11-17 14:15 | Outpatient (BNVA) | payer MEDICARE, MEDICAID, SELFPAY | PROVIDERS: PCP Internal Medicine; Visit Provider Nurse Practitioner Family | DX: J45.909 Unspecified asthma, uncomplicated (principal); M06.00 Rheumatoid arthritis without rheumatoid factor, unspecified site; R05.9 Cough, unspecified; R91.1 Solitary pulmonary nodule | CPT/HCPCS: 99212 ==

== ENCOUNTER 2024-12-19 10:45 | Outpatient (REF) | payer MEDICARE, MEDICAID, SELFPAY | END 2024-12-19 10:46 | disposition home or self-care (01) | LOC: CF 10:45 | DX: Z13.89 Encounter for screening for other disorder (principal) ==

== ENCOUNTER 2025-01-09 09:21 | Outpatient (AMB) | payer MEDICARE, MEDICAID, SELFPAY ==
--- NOTE | 2025-01-09 09:36 | A.OFFVIS_ITS ---
Vital Signs 01/09/25 09:48 Height 5 ft 7 in Weight 212 lb 4.882 oz BMI 33.2 BP 122/80 Blood Pressure Location Lt brachial Position Sitting Pulse 82 Pulse Source Pulse Oximeter Pulse Oximetry (%) 98 Oxygen Delivery Method Room Air Intake Visit Reasons: knee/hand/foot pain Intake Note: Patient presents for bilateral hand pain, RT hip pain, bilateral knee pain and RT foot pain. Patient also stated she is having LT foot swelling. Allergies trazodone Allergy (Intermediate, Verified 01/09/25 09:47) worsening depression Medication List - Last Reconciled 01/09/25 by Kalina Caceres MD albuterol sulfate 90 mcg/actuation 2 puffs inhalation Q4H PRN amlodipine 2.5 mg PO DAILY ascorbate calcium (vitamin C) 500 mg PO DAILY calcium carbonate-vitamin D3 600 mg-10 mcg (400 unit) (Calcium 600 + D(3)) 1 tab PO DAILY citalopram 20 mg PO DAILY clonazepam mg PO collagen (bovine) 100% ea topical diclofenac sodium 75 mg PO BID PRN echinacea 500 mg PO BID fexofenadine 180 mg PO DAILY fluticasone propion-salmeterol 100-50 mcg/dose (Wixela Inhub) 1 inh inhalation BID fluticasone propion-salmeterol 115-21 mcg/actuation (Advair HFA) 2 puffs inhalation Q12H mecobalamin (vitamin B12) (B12 Active) 1,000 mcg PO DAILY multivitamin 1 tab PO DAILY vitamin B complex (B Complex-Vitamin B12 tablet) 1 tab PO DAILY HPI Comments Details: Patient is a 69-year-old female with asthma/allergies, hypertension, depression, hyperlipidemia, osteopenia and seronegative rheumatoid arthritis here today for follow up Interval History: Patient last seen 05/26/[address] Gomez. At that time she was following up for her seronegative rheumatoid arthritis off DMARDs without any new joint pain or swelling. Plan was to continue monitoring off DMARDs. No active signs of RA at that time Today complaining of joint pain - Right hip pain and back pain - Radiating down to her legs - Hands have been swelling. AM stiffness for about 15-20 mins - Right ankle pain and leg swelling Feels like she can't move or walk, feels frustrated about that Takes diclofenac but no improvement Of note she has been taking care of her older brother who is recently moved in with her. She helps with moving and lifting him. Rheumatologic History: Rheumatoid arthritis, diagnosed around 2007 Plaquenil: June 2021- January 2022 No active disease on exam since prior to January 2022 Current Rheumatology Medication(s): [facility] Medical History Zenobia vaginitis Rheumatoid arthritis Surgical History Hx of tonsillectomy Hx of tubal ligation Social History (Updated 01/09/25 @ 09:48 by MANDEEP Burger) Household Members: Family Housing: House Alcohol intake: current Alcohol intake frequency: holidays/special occasions only Alcohol type: wine Patient Tobacco Use Status: Never used Tobacco e-Cigarette/Vaping Use: Never Used Review of Systems Const Details: Review of Systems Constitutional: Denies fever, chills, weight loss ENT: Denies vision changes, eye pain or eye redness, dental caries, dry mouth GI: Denies nausea, vomiting, diarrhea, abdominal pain, change in BM Pulm: Denies SOB, RUCKER, hemoptysis, wheezing Cards: Denies chest pain, palpitations Skin: Denies Raynaud's, rash, nail changes, photosensitivity, TOP AND SEAT COVER FITTER: Denies headaches, weakness, paresthesias, recurrent falls MSK: as per HPI All other systems reviewed and are unremarkable except noted above Physical Exam Vital Signs: Last Vital Signs Pulse 82 01/09/25 09:48 BP 122/80 01/09/25 09:48 Pulse Ox 98 01/09/25 09:48 Oxygen Delivery Method Room Air 01/09/25 09:48 BMI result Body Mass Index 33.2 Vital signs reviewed Physical Examination CONSTITUITIONAL Patient alert and cooperative. Well appearing and in no apparent painful distress HEENT Conjunctiva and sclera clear. ?Pupils equal round and reactive to light. ?No lymphadenopathy. ? CHEST/RESPIRATORY SYSTEM Normal respiratory effort and able to speak in complete sentences. ?Clear to auscultation bilaterally. ?No crackles, rales, rhonchi, wheezes heard. CARDIAC SYSTEM Regular rate and rhythm. ?S1 and S2 heard no murmurs. ?Radial pulses intact bilaterally MSK Hands: ?Able to make a fist. No synovitis noted to the MCPs, PIPs or DIPs. ?No tenderness to palpation of these joints. Herbeden's nodes? Wrists: ?Full range of motion at the wrists without pain. ?No tenderness to palpation or synovitis noted to the wrists. Elbows: Full range of motion without pain. No tenderness, weakness, swelling, increased warmth or erythema. Shoulders: Full range of active range of motion without pain. No tenderness, weakness, swelling, increased warmth or erythema. Hips: Full range of motion without pain. Hip bursa: TTP of the right hip bursa Knees: ?Full range of motion. ?No tenderness, swelling, increased warmth or erythema.?Bilateral crepitations felt Ankles: Full range of motion. ?No tenderness, swelling, increased warmth or erythema.? Feet: ?Negative squeeze test. ?No tenderness to palpation or swelling of the MTPs. Tender points:?No tenderness to palpation of the bilateral trapezius, supraspinatus, greater trochanters, anterior costochondral junctions, bilateral gluteal areas, bilateral suboccipital muscle insertions SKIN Skin intact without rashes. Results Reviewed Results Reviewed: Laboratory Tests 11/26/21 11/25/22 01/18/24 13:57 14:29 12:13 WBC 4.9 RBC 4.83 Hgb 14.3 Hct 43.8 Plt Count 214 ESR 6 Sodium 143 Potassium 4.5 Chloride 106 Carbon Dioxide 30 H BUN 17 H Creatinine 0.76 AST 29 ALT 28 Alkaline Phosphatase 58 C-Reactive Protein 0.17 Rheumatology labs 01/08/21 15:15 Rheumatoid Factor < 15.0 Cycl Citrul Peptide IgG <16 Assessment & Plan Assessment & Plan (1) Seronegative rheumatoid arthritis: Comment: Plaquenil: June 2021- January 2022 Code(s): M06.00 - Rheumatoid arthritis without rheumatoid factor, unspecified site Category: Medical Plan: #Seronegative RA Patient is a 69-year-old female with seronegative rheumatoid arthritis here today for follow up. Currently being managed off DMARDs. Based on my exam today I do not believe that she has any evidence of active disease. There is no tenderness to palpation of any of the typical RA joints. And there is no swelling or synovitis to any of the typical RA joints either. I do believe that her joint pain is related to her degenerative disease/osteoarthritis. And this is being exacerbated by her new role as a caregiver for her brother. I recommended continuing stretches and exercise. We will change diclofenac to meloxicam to see if this will help. We can consider adding gabapentin in 3 months after we review the efficacy of meloxicam. Plan - Continue to monitor off DMARDs - Labs today: CBC, CMP, ESR, CRP - Stop diclofenac - Start meloxicam 15mg daily - Recommending daily stretches and stress relief practices - RTC 3 months - Consider adding gabapentin at that time (2) Generalized osteoarthritis: Code(s): M15.9 - Polyosteoarthritis, unspecified Plan: #Polyarticular OA Patient with polyarticular osteoarthritis which is likely the contributing factor to her new pain. And this is exacerbated by her activities as a caregiver to her brother. See plan above Plan I spent 35 minutes reviewing the record and labs, taking a history, examining the patient, discussing the treatment plan, ordering diagnostic work up and documenting in the medical record Orders: Orders C Reactive Protein Today M06.00 - Rheumatoid arthritis without rheumatoid factor, unspecified site Complete Blood Count Auto Diff Today M06.00 - Rheumatoid arthritis without rheumatoid factor, unspecified site Comprehensive Met. Panel Today M06.00 - Rheumatoid arthritis without rheumatoid factor, unspecified site Erythrocyte Sedimentation Rate Today M06.00 - Rheumatoid arthritis without rheumatoid factor, unspecified site Medications: New meloxicam 15 mg PO DAILY 90 tabs 1RF M15.9 - Polyosteoarthritis, unspecified Discontinued diclofenac sodium Discontinued Reason: Doctor's Order 75 mg PO BID PRN 60 tabs 1RF pain M06.00 - Rheumatoid arthritis without rheumatoid factor, unspecified site Coding Level of Care Code Est Pt Level 4 (22517) Complex EM visit Add On G2211 Diagnoses Seronegative rheumatoid arthritis M06.00 Generalized osteoarthritis M15.9
[2025-01-09 09:48] VITALS: BP 122/80; PULSE 82; O2SAT 98; BMI 33.2
== END 2025-01-09 10:32 | disposition home or self-care (01) ==
LOC: HO.RHE 09:21
PROVIDERS: PCP Internal Medicine; Visit Provider Student in an Organized Health Care Education/Training Program
DX: M06.00 Rheumatoid arthritis without rheumatoid factor, unspecified site (principal); M15.9 Polyosteoarthritis, unspecified
CPT/HCPCS: 99214; G2211

== ENCOUNTER → 2025-01-09 09:21 | Outpatient (BNVA) | payer MEDICARE, MEDICAID, SELFPAY | PROVIDERS: PCP Internal Medicine; Visit Provider Student in an Organized Health Care Education/Training Program | DX: Z13.89 Encounter for screening for other disorder (principal) | CPT/HCPCS: 99212 ==

== ENCOUNTER 2025-01-09 10:35 | Outpatient (REF) | payer MEDICARE, MEDICAID, SELFPAY ==
[2025-01-09 13:13] LABS: MANUAL DIFF FLAG NO
[2025-01-09 13:35] LABS: Basophils Absolute Auto 0.1 X10*3/uL (0.0-0.2); Eosinophils Absolute Auto 0.3 X10*3/uL (0.0-0.4); Hematocrit 42.5 % (37.0-47.0); Hemoglobin 14.1 g/dl (12.0-16.0); Imm Gran Abs Auto 0.02 X10*3/uL (0.00-0.03); Imm Gran Pct Auto 0.3 % (0.0-0.4); Lymphocytes Absolute Auto 1.2 X10*3/uL (1.2-4.9); Lymphocytes Percent Auto 16.2 % (20-40); Mean Corpuscular HGB Conc 33.2 g/dl (31.0-35.0); Mean Corpuscular Hemoglobin 29.6 pg (27.0-33.0); Mean Corpuscular Volume 89.1 fL (80.0-98.0); Mean Platelet Volume 10.7 fL (9.4-12.3); Monocytes Absolute Auto 0.7 X10*3/uL (0.1-1.2); Monocytes Percent Auto 9.7 % (2-11); Neutrophils Absolute Auto 5.1 x10*3/uL (2.0-8.3); Neutrophils Percent Auto 68.8 % (45-73); Platelet Count 246 X10*3/uL (160-400); Red Blood Count 4.77 X10*6/uL (4.20-5.50); Red Cell Distribution Width 12.7 % (11.0-16.0); White Blood Count 7.3 X10*3/uL (4.8-10.8)
[2025-01-09 13:55] LABS: Alanine Aminotransferase 19 U/L (0-31); Albumin Level 4.5 g/dL (3.5-5.0); Alkaline Phosphatase 66 U/L (39-117); Anion Gap 10 (12-20); Aspartate Amino Transferase 31 U/L (5-31); Bilirubin Total 0.3 mg/dL (0.0-1.0); Blood Urea Nitrogen 28 mg/dL (9-16); C Reactive Protein 0.68 mg/dL (< or = 0.50); Calcium 9.6 mg/dL (8.4-10.2); Carbon Dioxide 32 mmol/L (22-29); Chloride 102 mmol/L (96-108); Estimated Glomerular Filt Rate > 60; Glucose Random 80 mg/dL (60-115); Potassium 4.9 mmol/L (3.3-5.1); Sodium 139 mmol/L (135-145); Total Protein 7.3 g/dL (6.5-8.0)
[2025-01-09 14:16] LABS: Erythrocyte Sedimentation Rate 9 MM/HR (0-20)
== END 2025-01-09 10:36 | disposition home or self-care (01) ==
LOC: HO.10HDL 10:35
PROVIDERS: Visit Provider Student in an Organized Health Care Education/Training Program
DX: M06.00 Rheumatoid arthritis without rheumatoid factor, unspecified site (principal); M15.9 Polyosteoarthritis, unspecified; Z79.899 Other long term (current) drug therapy
CPT/HCPCS: 36415; 80053; 85025; 85652; 86140; 99212

== ENCOUNTER 2025-03-21 13:50 | Outpatient (AMB) | payer MEDICARE, MEDICAID, SELFPAY ==
--- NOTE | 2025-03-21 13:54 | MHC.OFFVIS ---
Vital Signs 03/21/25 13:56 Height 5 ft 7 in Weight 209 lb 8 oz BMI 32.8 BP 142/88 H Blood Pressure Location Lt brachial Position Sitting Pulse 80 Pulse Source Pulse Oximeter Pulse Oximetry (%) 97 Oxygen Delivery Method Room Air Intake Visit Reasons: Asthma Allergies trazodone Allergy (Intermediate, Verified 03/21/25 13:59) worsening depression HPI HPI Asthma: Details: Katie is pleasant 69 year female, never smoker, with underlying asthma and rheumatoid arthritis. She reports moderate control of respiratory symptoms using Wixela one inhalation QD. At the last visit she was advised to increase to BID however has yet to do so and continues to report dyspnea on exertion. She also uses albuterol MDI infrequently. Chest CT from 10/24 revealed new 7 x 5 mm left upper lobe pulmonary nodular density. Today she presents to review chest CT results. She denies any visits to urgent care or hospitalizations related to respiratory distress since the last visit. [facility] Medical History Zenobia vaginitis Rheumatoid arthritis Surgical History Hx of tonsillectomy Hx of tubal ligation Social History Household Members: Family Housing: House Alcohol intake: current Alcohol intake frequency: holidays/special occasions only Alcohol type: wine Patient Tobacco Use Status: Never used Tobacco e-Cigarette/Vaping Use: Never Used Review of Systems Const Denies chills, Denies excessive sweating, Denies fever(s), Denies headache(s) and Denies night sweats Eyes Denies dry eyes, Denies irritation and Denies itchy eyes ENT Reports Normal hearing present, Denies headache(s), Denies nasal congestion, Denies nasal discharge, Denies post nasal drip and Denies sore throat Card Denies chest pain, Denies chest pain at rest, Denies chest pain with activity, Denies claudication, Denies leg edema, Reports dyspnea on exertion, Denies orthopnea and Denies paroxysmal nocturnal dyspnea Resp Denies chest congestion, Denies cough, Denies excessive phlegm production, Denies pain on inspiration, Denies pain with cough, Reports dyspnea on exertion, Denies stridor and Denies wheezing Musc Denies myalgias Neuro Reports Normal hearing present and Denies headache(s) Endo Denies excessive sweating Srinivasa/Lymph Denies lymphadenopathy Aller/Immun Denies itchy eyes, Denies seasonal rhinorrhea and Denies wheezing Physical Exam Vital Signs: Last Vital Signs Pulse 80 03/21/25 13:56 BP 142/88 H 03/21/25 13:56 Pulse Ox 97 03/21/25 13:56 Oxygen Delivery Method Room Air 03/21/25 13:56 BMI result Body Mass Index 32.8 Const General: cooperative, healthy appearing, comfortable, no acute distress, well developed and alert Nutritional Appearance: obese Orientation/consciousness: patient oriented x3 Limitations: no limitations HEENT Head: Yes normal to inspection, Yes normocephalic and Yes atraumatic Ears: hearing grossly normal bilaterally and external ears normal Eyes General: appearance normal, both eyes and all related structures Eyelids: Yes eyelids normal Sclerae: sclerae normal EOM: EOMs intact bilaterally Neck Neck: Yes normal visual inspection and Yes no lymphadenopathy Lymphatic: no lymphadenopathy noted Chest Chest palpation & inspection: normal inspection of the chest Resp Effort & Inspection: normal respiratory effort, able to speak in complete sentences, no audible wheezes, no cough, no stridor, not tachypneic, no tripod positioning and no use of accessory muscles Auscultation: clear to auscultation bilaterally Cardio Jugular venous distension: no JVD Rate: regular rate Rhythm: regular rhythm Skin Other: warm, dry General skin exam: no rashes or lesions noted Neuro General: patient oriented x3 Cranial nerves: Yes Normal hearing present Cognition (Neuro): normal cognition Gait exam (Neuro): Normal gait present Extrem General: Yes normal to inspection, Yes capillary refill normal, Yes no clubbing, cyanosis or edema and Yes no pedal edema Psych Appearance: grossly normal and well kempt Speech and movement: Normal speech and movement present and Clear speech present Affect: normal affect Attitude: cooperative Thought process: Normal thought process present Thought content: Normal thought content present Insight: Good insight present (Psych) Judgement: Good judgement present (Psych) Results Reviewed Results Reviewed: RESULT: CT Chest W/O Contrast CT Chest W/O Contrast INDICATION: Reason: R91.1 SOLITARY PULMONARY NODULE; Clinical Question(s): Other: TECHNIQUE: Helical CT scan of the chest without IV contrast, formatted in 3 planes. Weight-based protocol was performed using automatic exposure control. CTDIvol Body: 4.46 mGy, DLP Body: 163 mGy*cm. COMPARISON: CT chest 03/16/2024 and 10/30/2024 FINDINGS: Client Services Representative view findings, lines and tubes: None. Trachea and airways: Patent without evidence of tracheal or endobronchial lesion. Lungs and pleura: Lung nodules as follows (in series 5): Right lun mm calcified granuloma base of right lower lobe in image 259, unchanged Left lun mm periphery upper lobe image 41, unchanged 2 mm along the interlobar fissure image 115, unchanged 1 mm upper lobe image 125, unchanged No effusion or pneumothorax. Mediastinum and gwendolyn: No mass or hematoma. Calcified right hilar and subcarinal lymph nodes. The hilar and mediastinal nodes are otherwise unremarkable. No esophageal abnormality. Normal thyroid. Heart: Heart is normal in size. No pericardial effusion. Mild coronary artery calcification. Aorta: No aortic aneurysm. Pulmonary arteries: Normal caliber. Chest wall soft tissues: No acute abnormality. Diaphragm: Intact. Upper abdomen: Small hiatal hernia. Bones: No acute abnormality. Thoracic scoliosis with associated degenerative changes, similar to the previous study. IMPRESSION: No acute abnormality. Interval resolution of one of the previously noted left upper lobe nodules. Stable remaining 5 mm left upper lobe nodule and 2 tiny left lung fissural lymph nodes. Unchanged calcified granuloma in the base of the right lower lobe. Calcified right hilar and subcarinal lymph nodes consistent with old granulomatous disease. Stable small hiatal hernia. WSN: [id number] Ordering Physician: Barbara Packer Reason For Exam R91.1 SOLITARY PULMONARY NODULE Signature Line Dictated By: Keith Delacruz MD Dictated Date/Time: 02/23/25 4:07 pm Reviewed By: Keith Delacruz MD Signed By: Keith Delacruz MD Signed Date/Time: 02/23/25 4:07 pm Transcribed By: RENU Transcribed Date/Time: 02/23/25 3:51 pm Assessment & Plan Assessment & Plan (1) Asthma: Code(s): J45.909 - Unspecified asthma, uncomplicated Category: Medical (2) Seronegative rheumatoid arthritis: Comment: Plaquenil: June 2021- January 2022 Code(s): M06.00 - Rheumatoid arthritis without rheumatoid factor, unspecified site Category: Medical (3) Pulmonary nodule: Code(s): R91.1 - Solitary pulmonary nodule Category: Medical Plan Katie reports suboptimal effect of respiratory symptoms using Wixela 1 inhalation QD. Advised to increase to BID. She is aware to call if respiratory symptoms still not controlled with increasing dose. Reviewed chest CT which revealed interval resolution of one of the previously noted left upper lobe nodules. Stable remaining 5 mm left upper lobe nodule and 2 tiny left lung fissural lymph nodes. Unchanged calcified granuloma in the base of the right lower lobe. Will repeat in 3- 6 months to assess stability. All questions were answered and patient is in agreement of plan. Will follow up to review results of chest CT or sooner if needed. Orders: Orders CT chest wo IV con 5 Months R91.1 - Solitary pulmonary nodule Medications: New albuterol sulfate 90 mcg/actuation 2 puffs inhalation Q4H PRN 1 ea 3RF wheezing Refilled fluticasone propion-salmeterol 100-50 mcg/dose (Wixela Inhub) 1 inh inhalation BID 60 ea 3RF Discontinued fluticasone propion-salmeterol 115-21 mcg/actuation Discontinued Reason: Patient Completed Course 2 puffs inhalation Q12H 12 grams 6RF Coding Level of Care Code Est Pt Level 4 (24649) Diagnoses Asthma J45.909 Seronegative rheumatoid arthritis M06.00 Pulmonary nodule R91.1
[2025-03-21 13:56] VITALS: BP 142/88; PULSE 80; O2SAT 97; BMI 32.8
== END 2025-03-21 14:18 | disposition home or self-care (01) ==
LOC: HO.HPSW 13:51
PROVIDERS: PCP Internal Medicine; Visit Provider Nurse Practitioner Family
DX: J45.909 Unspecified asthma, uncomplicated (principal); M06.00 Rheumatoid arthritis without rheumatoid factor, unspecified site; R91.1 Solitary pulmonary nodule
CPT/HCPCS: 99214

== ENCOUNTER → 2025-03-21 13:50 | Outpatient (BNVA) | payer MEDICARE, MEDICAID, SELFPAY | PROVIDERS: PCP Internal Medicine; Visit Provider Nurse Practitioner Family | DX: R91.1 Solitary pulmonary nodule (principal); M06.00 Rheumatoid arthritis without rheumatoid factor, unspecified site; J45.909 Unspecified asthma, uncomplicated | CPT/HCPCS: 99212 ==

== ENCOUNTER 2025-04-06 14:57 | Outpatient (AMB) | payer MEDICARE, MEDICAID, SELFPAY ==
--- NOTE | 2025-04-06 15:15 | A.OFFVIS_ITS ---
Vital Signs 04/06/25 15:19 Height 5 ft 7 in Weight 209 lb 14.081 oz BMI 32.9 BP 150/74 H Blood Pressure Location Rt brachial Position Sitting Pulse 92 Pulse Source Pulse Oximeter Pulse Oximetry (%) 95 Oxygen Delivery Method Room Air Intake Visit Reasons: knee/hand/foot pain Intake Note: Patient presents for knee/hand/foot pain follow up. Allergies trazodone Allergy (Intermediate, Verified 04/06/25 15:18) worsening depression Medication List - Last Reconciled 04/06/25 by Kalina Caceres MD albuterol sulfate 90 mcg/actuation 2 puffs inhalation Q4H PRN calcium carbonate-vitamin D3 600 mg-10 mcg (400 unit) (Calcium 600 + D(3)) 1 tab PO DAILY celecoxib (Celebrex) 200 mg PO BID PRN citalopram 20 mg PO DAILY clonazepam mg PO collagen (bovine) 100% ea topical echinacea 500 mg PO BID fexofenadine 180 mg PO DAILY fluticasone propion-salmeterol 115-21 mcg/actuation (Advair HFA) 2 puffs inhalation Q12H HPI Comments Details: Patient is a 69-year-old female with asthma/allergies, hypertension, depression, hyperlipidemia, osteopenia and seronegative rheumatoid arthritis here today for follow up Interval History: Patient last seen 01/09/25 with me - Not on any rheum medications - Complaining of joint pain: - Right hip pain and back pain - Radiating down to her legs - Hands have been swelling. AM stiffness for about 15-20 mins - Right ankle pain and leg swelling - Feels like she can't move or walk, feels frustrated about that - Takes diclofenac but no improvement - Of note she has been taking care of her older brother who is recently moved in with her. She helps with moving and lifting him. - No synovitis on exam, pain attributed to OA - Started meloxicam Since then, - Changed meloxicam to celebrex due to worsening depression Today - Celebrex 200mg bid - Doing better on celebrex but she still complains of pain - Complaining of right hip and low back pain Rheumatologic History: Rheumatoid arthritis, diagnosed around 2007 Plaquenil: June 2021- January 2022 No active disease on exam since prior to January 2022 Current Rheumatology Medication(s): Celebrex 200mg bid [facility] Medical History Zenobia vaginitis Rheumatoid arthritis Surgical History Hx of tonsillectomy Hx of tubal ligation Social History Household Members: Family Housing: House Alcohol intake: current Alcohol intake frequency: holidays/special occasions only Alcohol type: wine Patient Tobacco Use Status: Never used Tobacco e-Cigarette/Vaping Use: Never Used Review of Systems Const Details: Review of Systems Constitutional: Denies fever, chills, weight loss ENT: Denies vision changes, eye pain or eye redness, dental caries, dry mouth GI: Denies nausea, vomiting, diarrhea, abdominal pain, change in BM Pulm: Denies SOB, RUCKER, hemoptysis, wheezing Cards: Denies chest pain, palpitations Skin: Denies Raynaud's, rash, nail changes, photosensitivity, HOUSE WIRER: Denies headaches, weakness, paresthesias, recurrent falls MSK: as per HPI All other systems reviewed and are unremarkable except noted above Physical Exam Exam Exam: Vital signs reviewed Physical Examination CONSTITUITIONAL Patient alert and cooperative. Well appearing and in no apparent painful distress MSK Hands * Right Hand: Able to make a fist. No swelling or tenderness to palpation of the MCPs, PIPs or DIPs. * Left Hand: Able to make a fist. No swelling or tenderness to palpation of the MCPs, PIPs or DIPs. * Herbedens and Bouchards nodes noted bilaterally Wrists * Right Wrist: Full ROM to flexion and extension. No swelling or TTP * Left Wrist: Full ROM to flexion and extension. No swelling or TTP Elbows * Right Elbow: Full ROM. No swelling or TTP. No TTP of the medial epicondyle. No TTP of the lateral epicondyle * Left Elbow: Full ROM. No swelling or TTP. No TTP of the medial epicondyle. No TTP of the lateral epicondyle Shoulders * Right shoulder: Full ROM. No swelling noted. No TTP of the AC joint. No TTP of the subacromial bursa. No TTP of the posterior shoulder * Left shoulder: Full ROM. No swelling noted. No TTP of the AC joint. No TTP of the subacromial bursa. No TTP of the posterior shoulder Hips * Right hip: Good ROM. No pain elicited with hip flexion/internal rotation/exter nal rotation * Left hip: Good ROM. No pain elicited with hip flexion/internal rotation/external rotation Hip bursa: Tenderness to palpation on the right. No TTP on the left Knees * Right knee: Full ROM. No swelling noted. No TTP of the knee joint line. No TTP of pes anserine bursa * Left knee: Full ROM. No swelling noted. No TTP of the knee joint line. No TTP of pes anserine bursa. * Crepitations felt bilaterally Ankles * Right ankle: Good ankle dorsiflexion and plantar flexion. No swelling. No TTP of the ankle joint * Left ankle: Good ankle dorsiflexion and plantar flexion. No swelling. No TTP of the ankle joint Feet * Right foot: Negative squeeze test * Left foot: Negative squeeze test Tender points? * No tenderness to palpation of the bilateral trapezius, supraspinatus, anterior costochondral junctions, bilateral suboccipital muscle insertions SKIN No rashes Vital Signs: Last Vital Signs Pulse 92 04/06/25 15:19 BP 150/74 H 04/06/25 15:19 Pulse Ox 95 04/06/25 15:19 Oxygen Delivery Method Room Air 04/06/25 15:19 BMI result Body Mass Index 32.9 Results Reviewed Results Reviewed: Laboratory Tests 11/25/22 01/09/25 14:29 10:38 WBC 7.3 RBC 4.77 Hgb 14.1 Hct 42.5 Plt Count 246 ESR 9 Sodium 139 Potassium 4.9 Chloride 102 Carbon Dioxide 32 H BUN 28 H Creatinine 0.93 AST 31 ALT 19 C-Reactive Protein 0.26 0.68 H XR Bilateral Hand/Wrist 12/2020 FINDINGS (Right): There may be mild periarticular osteopenia. Bone alignment is normal. No fracture or dislocation is seen. There are small osteophytes at the IP joints of the right hand. Joint spaces are otherwise normal. No erosions or cysts are seen. Soft tissues are normal. IMPRESSION: Small osteophytes at the IP joints on the right. Question mild periarticular osteopenia. FINDINGS (Left): There may be mild periarticular osteopenia. Bone alignment is normal. No fracture or dislocation is seen. There are small osteophytes at the IP joints of the right hand. Joint spaces are otherwise normal. No erosions or cysts are seen. Soft tissues are normal. IMPRESSION: Small osteophytes at the IP joints on the right. Question mild periarticular osteopenia. Assessment & Plan Assessment & Plan (1) Seronegative rheumatoid arthritis: Comment: Plaquenil: June 2021- January 2022 Code(s): M06.00 - Rheumatoid arthritis without rheumatoid factor, unspecified site Category: Medical Plan: #Seronegative RA Patient is a 69-year-old female with seronegative rheumatoid arthritis here today for follow up. Currently being managed off DMARDs. No evidence of synovitis today. Plan - Celebrex 200mg bid - Recommending daily stretches and stress relief practices - RTC 6 months (2) Generalized osteoarthritis: Code(s): M15.9 - Polyosteoarthritis, unspecified Plan: #Polyarticular OA Doing better on celebrex, will continue same Plan - XR Bilateral Hips Plan I spent 28 minutes reviewing the record and labs, taking a history, examining the patient, discussing the treatment plan, ordering diagnostic work up and documenting in the medical record Orders: Orders XR hip LT min 2V Today M16.0 - Bilateral primary osteoarthritis of hip XR hip RT min 2V Today M16.0 - Bilateral primary osteoarthritis of hip Coding Level of Care Code Est Pt Level 3 (63437) Complex EM visit Add On G2211 Diagnoses Seronegative rheumatoid arthritis M06.00 Generalized osteoarthritis M15.9
[2025-04-06 15:19] VITALS: BP 150/74; PULSE 92; O2SAT 95; BMI 32.9
== END 2025-04-06 16:00 | disposition home or self-care (01) ==
LOC: HO.RHES 14:58
PROVIDERS: PCP Internal Medicine; Visit Provider Student in an Organized Health Care Education/Training Program
DX: M06.00 Rheumatoid arthritis without rheumatoid factor, unspecified site (principal); M15.9 Polyosteoarthritis, unspecified
CPT/HCPCS: 99213; G2211

== ENCOUNTER → 2025-04-06 14:57 | Outpatient (BNVA) | payer MEDICARE, MEDICAID, SELFPAY | PROVIDERS: PCP Internal Medicine; Visit Provider Student in an Organized Health Care Education/Training Program | DX: M15.9 Polyosteoarthritis, unspecified (principal); M06.00 Rheumatoid arthritis without rheumatoid factor, unspecified site | CPT/HCPCS: 99212 ==